=== PATIENT | female | born 1945 | race Caucasian/White ===

== ENCOUNTER → 2016-11-07 16:52 | Outpatient (CLI) | payer MEDICARE, BC ==
[2011-06-19 15:57] VITALS: BMI 19.0
== END | disposition home or self-care (01) ==
LOC: D.MAMMO 09:00
DX: Z12.31 Encounter for screening mammogram for malignant neoplasm of breast (principal)

== ENCOUNTER → 2018-01-13 07:50 | Outpatient (CLI) | payer MEDICARE, BC ==
[~2018-01-13] VITALS: Ht 157.5 cm; Wt 113.6 kg
--- NOTE | ~2018-01-13 | HEMODYNAMI ---
PATIENT:ARSLAN FRENCH I MEDICAL RECORD: [id number] : 49 LOCATION:[facility] ADMISSION DATE: 01/13/18 Generatedon:01/13/201810:32 Patient name: ARSLAN FRENCH Patient #: [id number] SSN: D OB: 1945 Date of study: 01/13/2018 Page: Of Hemodynamic Procedure Report Patient Data Patient Demographics Procedure consent was obtained First Name: ARSLAN Gender: Female Last Name: GILLIAN : 1945 [facility] Initial: I Age: 72 year(s) Patient #: [id number] Race: Unknown Additional ID: [id number] Contact details [address]: [address] [place] [address] State: [place] City: [place] Zip code: [address] Past Medical History Allergies: No known allergies Admission Admission Data Admission Date: 01/13/2018 Admission Time: 7:50 Height (in.): 62 BSA: 2.12 (m2) Height (cm.): 157.48 BMI: 46.46 (kg/m2) Weight (lbs.): 254 Weight (kg.): 115.21 Procedure Procedure Types Cath Procedure Diagnostic Procedure LHC LH w/Coronaries Sedation Charges Moderate Sedation up to 15 minutes PCI Procedure Coronary Stent Coronary Stent Initial Procedure Description Procedure Date Procedure Date: 01/13/2018 Procedure Start Time: 10:16 Procedure End Time: 10:29 Procedure Staff Name Function Sunny Leonardo MD Performing Physician Drake Recinos RT Glass Scullion Norma Lockett RT Monitor Amie Torres RN Nurse Janet Estrada RT Scrub Procedure Data Cath Procedure Fluoroscopy Diagnostic fluoroscopy Total fluoroscopy Time: 2.3 time: 2.3 min min Diagnostic fluoroscopy Total fluoroscopy dose: 699 dose: 699 mGy mGy Contrast Material Contrast Material Type Amount (ml) Isovue 300 67 Entry Location Entry Primary Successful Side Size Upsize Upsize Entry Closure Succes sful Closure Location (Fr) 1 (Fr) 2 (Fr) Remarks Device Remarks Radial Right 6 Fr Exoseal artery Short Estimated blood loss: 10 ml Procedure Complications No complications Procedure Medications Medication Administration Route Dosage Oxygen NC 2 l/min Lidocaine 2% added to field 20 Heparin Flush Bag added to field 2 bags (1000units/500ml NS) 0.9% NaCl I.V. 100 ml/hr Radial Cocktail I.A. 1 syringe (Verapomil 2mg/Nitro 400mcg/Heparin 1500units) Versed I.V. 1 mg Fentanyl I.V. 50 mcg Versed I.V. 1 mg Fentanyl I.V. 50 mcg Heparin Bolus I.V. 4000 units Integrilin (Bolus I.V. 10.2 ml 2mg/ml) Versed I.V. 0.5 mg Fentanyl I.V. 25 mcg Plavix P.O. 600 mg Hemodynamics Rest BSA: 2.12 (m2) O2 Consumption: Estimated: 182.36 (ml/min) O2 Consumption indexed : Estimated:86.02 (ml/min/m) Heart Rate: 54 (bpm) Snapshots Pre Cath Intra NCS Post Cath Vital Signs Time Heart Resp SPO2 etCO2 NIBP (mmHg) Rhythm Pain Sedation Rate (ipm) (%) (mmHg) Status Level (bpm) 10:06:02 56 16 97 24 164/87(135) NSR 0 (11) 10(A) , No pain 10:10:20 50 13 96 39.8 127/73(93) NSR 0 (11) 10(A) , No pain 10:14:32 49 15 95 25.5 102/65(82) NSR 0 (11) 10(A) , No pain 10:18:36 55 14 92 29.7 106/59(74) NSR 0 (11) 9(A) , No pain 10:22:46 51 15 94 21.5 99/49(81) NSR 0 (11) 9(A) , No pain 10:26:51 55 18 94 32.3 102/55(73) NSR 0 (11) 9(A) , No pain 10:31:34 52 15 99 17.2 103/54(78) NSR 0 (11) 10(A) , No pain Medications Time Medication Route Dose Verified Delivered Reason Note s Effectiveness by by 10:10:14 Oxygen NC 2 l/min Sunny Holloway used for Jorden Torres engineering officer 10:10:21 Lidocaine 2% added 20ml Sunny Correa for local to vial Jorden Leonardo MD anesthetic field 10:10:27 Heparin Flush added 2 bags Sunny Correa used for Bag to Jorden Leonardo MD procedure (1000units/500ml field NS) 10:10:35 0.9% NaCl I.V. 100 Sunny Buffie Per physician ml/hr Jorden Torres RN 10:15:02 Versed I.V. 1 mg Sunny Holloway for sedation Jorden Torres RN 10:15:14 Fentanyl I.V. 50 mcg Sunny Buffie for sedation Jorden Torres RN 10:18:06 Radial Cocktail I.A. 1 Sunny Correa for (Verapomil syringe Jorden Leonadro MD vasodilation 2mg/Nitro 400mcg/Heparin 1500units) 10:18:57 Versed I.V. 1 mg Sunny Hutchisonie for sedation Jorden Torres RN 10:19:01 Fentanyl I.V. 50 mcg Sunny Holloway for sedation Jorden Torres RN 10:21:23 Heparin Bolus I.V. 4000 Sunny Hutchisonie for veri fied units Jorden Torres RN anticoagulation with dr leonardo 10:23:28 Integrilin I.V. 10.2 ml Sunny Holloway Per physician Wast ed (Bolus 2mg/ml) Jorden Torres RN 9.8 ml of vial 10:25:29 Versed I.V. 0.5 mg Sunny Hutchisonie for sedation Jorden Torres RN 10:25:34 Fentanyl I.V. 25 mcg Sunny Holloway for sedation Jorden Torres RN 10:29:43 Plavix P.O. 600 mg Sunny Holloway for Jorden Torres RN antiplatelet therapy Procedure Log Time Note 9:53:55 Patient Height : 62 inches 9:54:10 Patient Weight : 254 lbs 9:55:02 Diagnostic Cath status Elective 9:55:04 Drake STRAUSS(R) sent for patient. Start room use. 9:55:06 Time tracking: Regular hours (M-F 7:00 - 5:00) 9:55:11 Plan of Care:Hemodynamics will remain stable., Cardiac rhythm will remain stable., Comfort level will be maintained., Respiratory function will remain adequate., Patient/ family verbilizes understanding of procedure., Procedure tolerated without complication., Recovers from procedure without complications.. 9:55:26 Patient received from Pre/Post Procedure Room to CCL 2 Alert and oriented. Tansferred to table in Supine position. 9:55:27 Warm blankets applied, and memo hugger turned on for patient comfort. 9:55:28 Correct patient and procedure confirmed by team. 9:55:28 Correct patient and procedure confirmed by team. 9:55:32 Signed procedure consent form obtained from patient. 9:55:45 H&P Date Dictated: 12/30/2017 Within 30 days and on chart., H&P Addendum completed by physician on day of procedure. (MUST COMPLETE FOR ALL OUTPATIENTS). 9:55:47 Pre-procedure instructions explained to patient. 9:55:49 Family in waiting room. 9:55:51 Patient NPO since Midnight. 9:55:59 Patient allergic to No known allergies 9:56:02 Is the patient allergic to Iodine/contrast media? No. 9:56:03 Was the patient premedicated? Yes 9:57:52 Is patient on blood thinner?No 9:57:56 Patient diabetic? No. 9:58:01 Snore? Yes 9:58:03 Sleep apnea? No 9:58:09 Dentures? No ? 9:58:13 Patient pain scale 0/10 ?. 9:58:20 IV patent on arrival in left forearm with 0.9% NaCl at KVO. 9:58:24 Lab results completed and on chart. 9:58:31 Right Radial & Right Groin area was prepped with chlora-prep and draped in sterile fashion 9:58:32 Alarms reviewed by R. N. 9:58:32 Sharps counted by scrub and verified by R.N. 9:58:33 Physician paged 10:04:53 Vital chart was started 10:04:55 ECG and BP/O2 sat monitors applied to patient. 10:05:01 Baseline sample Acquired. 10:05:07 Rhythm: sinus rhythm 10:05:10 Full Disclosure recording started 10:10:14 Oxygen 2 l/min NC was administered by Amie Torres RN; used for procedure; 10:10:21 Lidocaine 2% 20ml vial added to field was administered by Sunny Leonardo MD; for local anesthetic; 10:10:27 Heparin Flush Bag (1000units/500ml NS) 2 bags added to field was administered by Sunny Leonardo MD; used for procedure; 10:10:35 0.9% NaCl 100 ml/hr I.V. was administered by Amie Torres RN; Per physician; 10:14:00 Physician arrived 10:14:00 --------ALL STOP TIME OUT------ 10:14:01 Final Timeout: patient, procedure, and site verified with staff and physician. All members of the team are in agreement. 10:14:04 Right Radial & Right Groin site verified by team. 10:14:09 Physical assessment completed. ASA score P 2 - A patient with mild systemic disease as per Sunny Leonardo MD. 10:14:13 Sedation plan: IV Moderate Sedation Medication:Versed, Fentanyl 10:14:18 Use device set Femoral Dx 10:14:20 ACIST Syringe (44471) opened to sterile field. 10:14:20 Bag Decanter (2002S) opened to sterile field. 10:14:21 Medline Cath Pack ([id number]) opened to sterile field. 10:14:23 ACIST Hand Control (58825) opened to sterile field. 10:14:23 ACIST Manifold (15499) opened to sterile field. 10:14:24 Tegaderm 4 x 4 (1626W) opened to sterile field. 10:14:38 SHEATH 6Fr Prelude Radial ([id number]) opened to sterile field. 10:15:02 Versed 1 mg I.V. was administered by Amie Torres RN; for sedation; 10:15:14 Fentanyl 50 mcg I.V. was administered by Amie Torres RN; for sedation; 10:16:40 Procedure started. 10:16:45 Local anesthetic to right radial artery with Lidocaine 2% by Sunny Leonardo MD.INITIAL ACCESS ONLY 10:17:32 A 6 Fr Short sheath was inserted into the Right Radial artery 10:17:57 GUIDE 6Fr Morenci 4.0 catheter (253054) opened to sterile field. 10:18:05 Zero performed for pressure channel P1 10:18:06 Radial Cocktail (Verapomil 2mg/Nitro 400mcg/Heparin 1500units) 1 syringe I.A. was administered by Sunny Leonardo MD; for vasodilation; 10:18:22 J wire advanced. 10:18:28 LV angiography performed. 10:18:57 Versed 1 mg I.V. was administered by Amie Torres RN; for sedation; 10:19: Fentanyl 50 mcg I.V. was administered by Amie Torres RN; for sedation; 10:19:25 LCA angiography performed. 10:19:45 EF : 60 % 10:19:50 RCA angiography performed. 10:20:23 Catheter removed. 10::55 Proceeding to intervention. 10::23 Heparin Bolus 4000 units I.V. was administered by Amie Torres RN; for anticoagulation; verified with dr leonardo 10:22:35 INFLATOR Merit BasixCompak (NC8779) opened to sterile field. 10:22:36 CHOICE PT Extra Support 182cm wire ([id number]) opened to sterile field. 10:22:59 GUIDE 6FR XB 3.5 catheter ([id number]) opened to sterile field. 10:23:25 6 Fr XB 3.5 guide catheter was inserted over the wire 10:23:28 Integrilin (Bolus 2mg/ml) 10.2 ml I.V. was administered by Amie Torres RN; Per physician; Wasted 9.8 ml of vial 10:23:34 extra support wire advanced. 10:23:36 Wire advanced across lesion. 10:24:22 Place stent Inflation Number: 1 A INTEGRITY RX 2.5 x 12 stent ([id number]) was prepped and advanced across the Mid CX. The stent was deployed at 13 SHERICE for 0:14 (min:sec). 10:25:04 EXOSEAL 6Fr (EX600) opened to sterile field. 10:25:13 Wire removed. 10:25:16 Guide catheter removed. 10:25:27 Sheath removed intact; hemostasis achieved with Exoseal to the Right Radial artery. 10:25:29 Versed 0.5 mg I.V. was administered by Amie Torres RN; for sedation; 10:25:30 Procedure ended.(Physican Out) 10:25:34 Fentanyl 25 mcg I.V. was administered by Amie Torres RN; for sedation; 10:25:48 TR BAND Standard ([id number]) opened to sterile field. 10::55 Fluoroscopy time 02.30 minutes. 10:26:01 Fluoroscopy dose: 699 mGy 10:26:01 Flurop Dose total: 699 10:26:09 Contrast amount:Isovue 300 67ml. 10:26:11 Sharps counted by scrub and verified by R.N. 10:26:14 TR band inflated with 10cc of air. 10:26:15 Insertion/operative site no bleeding no hematoma. 10:26:23 Post-procedure physical assessment completed. ASA score P 2 - A patient with mild systemic disease as per Sunny Leonardo MD. 10::26 Post procedure rhythm: unchanged. 10::29 Estimated blood loss: 10 ml 10::31 Post procedure instruction explained to patient.Patient verbalizes understanding. 10:26:52 Procedure type changed to Cath procedure, Diagnostic procedure, LHC, LHC w/Coronaries, Sedation Charges, Moderate Sedation up to 15 minutes, PCI procedure, Coronary Stent, Coronary Stent Initial 10::56 Procedure and supply charges have been captured, reviewed, submitted and are correct. 10:27:33 Procedure Complication : No complications 10:27:35 Vital chart was stopped 10:27:36 See physician's report for complete and final results. 10:27:39 Report given to Pre/Post Procedure Room. 10:28:08 Patient transfered to Pre/Post Procedure Room with Stretcher. 10:29:43 Plavix 600 mg P.O. was administered by Amie Torres RN; for antiplatelet therapy; 10::57 Procedure ended. 10::57 Full Disclosure recording stopped 10:30:08 ACC-PCI Only Patient was given prescriptions, or instructed by Sunny Leonardo MD to start/continue the following medications upon discharge: Plavix 10:30:10 End room use (Document Last) Intervention Summary Intervention Notes Time ActionType Lesion and Equipment Action# Pressure Duration Attributes Used 10:24:22 Place stent Mid CX INTEGRITY RX 1 13 00:14 2.5 x 12 stent ([id number]) Device Usage Item Name Manufacture Quantity Catalog Number Hospital Part Current M inimal Lot# / Charge Number Stock Stock Serial# Code ACIST Syringe Acist 1 99283 123011 155428 558702 2 0 (65646) [employer] Bag Decanter Microtek 1 204450 19295 300458 5 () Medical Inc. Medline Cath Cardinal 1 [id number] 653832 58397 513811 5 Pack Stylefie ([id number]) ACIST Hand Acist 1 19694 139272 230359 010347 5 Control (21463) [employer] Inc ACIST Manifold Acist 1 49154 800555 805720 895545 5 (80947) [employer] Inc Tegaderm 4 x 4 3M 1 1626W 985020 492949 065160 5 (1626W) SHEATH 6Fr Merit 1 [id number] 223166 396986 209430 5 Prelude Radial Medical ([id number]) GUIDE 6Fr Morenci Terumo 1 40-6311 829885 952609 284933 1 4.0 catheter (943572) INFLATOR Merit Merit 1 ZH2783 174995 836349 747138 1 5 [employer] ([id number]) CHOICE PT Extra [place] 1 [id number] 103850 810193 188698 5 Support 182cm Scientific wire ([id number]) GUIDE 6FR XB Cardinal 1 [id number] 329365 960052 190853 2 3.5 catheter Health ([id number]) INTEGRITY RX Medtronic 1 [id number] 713407 959106 070797 5 [id number] 2.5 x 12 stent ([id number]) EXOSEAL 6Fr Cardinal 1 EX600 281021 366837 728956 1 0 (EX600) Health TR BAND Terumo 1 [id number] 390487 413675 325583 4 0 Standard ([id number]) Signature Audit [place] Stage Time Signature Unsigned Intra-Procedure 01/13/2018 Norma Lockett 10:32:15 AM RT(R) Signatures Monitor : Norma Lockett Signature : RT Date : Time : [facility] [address] [place] [address]
--- NOTE | ~2018-01-13 | OP ---
PATIENT NAME: ARSLAN FRENCH I MEDICAL RECORD: [id number] :49 LOCATION:D.CAT ADMISSION DATE: SURGEON: RICARDO MONTAÑO MD DATE OF OPERATION: 01/13/2018 PROCEDURES: 1. PTCA stent left circumflex. 2. Left heart catheterization. 3. Selective coronary angiography. 4. Left ventriculogram. INDICATION: Angina, coronary artery disease. PROCEDURE IN DETAIL: After informed consent was obtained and after a detailed description of risks, benefits as well as alternative therapies, the patient elected to proceed with angiogram and angioplasty. The right femoral area was prepped and draped in normal sterile fashion. Right femoral artery was cannulated via modified Seldinger technique with placement of 6-English sheath. All catheters exchanged through this sheath. FINDINGS: The left ventriculogram was performed on a standard 30-degree ECHOLS view, reveals good cardiac wall motion throughout all segments. Overall ejection fraction estimated at 60%. SELECTIVE CORONARY ANGIOGRAPHY: 1. Left main is with no significant angiographic disease. 2. Left anterior descending has mild irregularities, but no flow-limiting stenosis. 3. The left circumflex has a previously placed stent that is widely patent; however, after this, there is 70% to 80% stenosis. 4. The right coronary has mild irregularities, but no flow-limiting stenosis. PTCA STENT OF THE LEFT CIRCUMFLEX: The stent used 2.5 x 12 mm Integrity. Result was 0% residual stenosis. OVERALL IMPRESSION: Successful PTCA stent of the left circumflex going from 70% to 80% initial stenosis to 0% residual stenosis. TRANSINT:[id number] Voice Confirmation ID: [id number] DOCUMENT ID: [id number] RICARDO MONTAÑO MD at 1710 CC: [id number] DICTATION DATE: 01/13/18 1028 REPAIRER ART OBJECTS: 01/13/18 1215 [facility] CLI 01/13/18 [id number] [place] [address]
[~2018-01-13 07:50] MED LIST: BAYER CHEWABLE81 MG PO; FLINTSTONE1 TAB.CHEW PO; HYZAAR 100-25 T1 TAB PO; LEVOTHYROXINE125 MCG PO; MOBIC7.5 MG PO; NIFEDIPINE ER30 MG PO; PLAVIX75 MG PO; TENORMIN50 MG PO
[2018-01-13 08:22] VITALS: BP 150/69; Ht 157.5 cm; Wt 113.6 kg
[2018-01-13 08:32] LABS: BASOPHILS 0.4 % (0-2); EOSINOPHILS 3.5 % (0-7); HEMATOCRIT 41.1 % (36.0-48.0); IMMATURE GRANULOCYTES 0.3 % (0-5); LYMPHOCYTES 20.5 % (15-50); MCH 30.8 pg (26.0-34.0); MCHC 34.1 g/dL (31.0-37.0); MCV 90.5 fL (80.0-100.0); MEAN PLATELET VOLUME 9.2 fL (7.4-10.4); MONOCYTES 7.2 % (2-11); NEUTROPHILS 68.1 % (40-80); PLATELET COUNT 216 10x3/uL (130-400); RBC 4.54 10x6/uL (4.00-5.40); RDW 13.9 % (11.5-14.5); WBC 7.1 10x3/uL (4.8-10.8)
[2018-01-13 08:43] LABS: CALCIUM 9.4 mg/dL (8.5-10.1); CARBON DIOXIDE 26.8 mmol/L (21.0-32.0); CREATININE - SERUM 1.2 mg/dL (0.6-1.3); POTASSIUM - SERUM 3.8 mmol/L (3.5-5.1)
== END | disposition home or self-care (01) ==
LOC: D.CATH 07:50
PROVIDERS: Internal Medicine Interventional Cardiology
DX: I25.119 Atherosclerotic heart disease of native coronary artery with unspecified angina pectoris (principal); R06.02 Shortness of breath; I10 Essential (primary) hypertension; R06.09 Other forms of dyspnea; R42 Dizziness and giddiness; Z01.812 Encounter for preprocedural laboratory examination

== ENCOUNTER → 2018-10-01 23:27 | Outpatient (CLI) | payer MEDICARE, BC ==
[2018-01-13 08:22] VITALS: BMI 45.8
== END | disposition home or self-care (01) ==
LOC: D.MAMMO 09-11 11:15
PROVIDERS: ATTEND Family Medicine
DX: Z12.31 Encounter for screening mammogram for malignant neoplasm of breast (principal)

== ENCOUNTER → 2020-05-11 22:55 | Outpatient (CLI) | payer MEDICARE, OTHER ==
[2018-01-13 08:22] VITALS: BMI 45.8
== END | disposition home or self-care (01) ==
LOC: D.MAMMO 11:15
PROVIDERS: ATTEND Family Medicine
DX: Z12.31 Encounter for screening mammogram for malignant neoplasm of breast (principal)